=== PATIENT | female | born 1990 | race Caucasian/White ===

== ENCOUNTER 2020-04-20 00:48 | Observation (INO) | payer BC, OTHER, MEDICAID, SELFPAY ==
[2020-04-20] VITALS (27 sets, daily range): BP systolic 101–143; BP diastolic 53–83; PULSE 80–103; RESP 14–31; TEMP 36.8–37.1; O2SAT 93–100; BMI 25.7
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
[2020-04-20] MEDS: SODIUM CHLORIDE 0.9% 1,000 ML 1000 ML IV ×2 (01:05→02:33)
[2020-04-20] MEDS: ONDANSETRON 4 MG/2 ML INJ IV (01:20)
[2020-04-20 01:21] LABS: Add Manual Diff / Slide Review YES; Hematocrit 42.5 % (36-46); Hemoglobin 14.3 g/dL (12.0-16.0); Mean Corpuscular HGB Conc 33.7 % (30-36); Mean Corpuscular Hemoglobin 30.1 PG (26-34); Mean Corpuscular Volume 89.4 fL (80-100); Platelet Count 369 X10^3/uL (150-400); Red Blood Cell Count 4.76 X10^6/uL (4.0-5.2); Red Cell Distribution Width 12.5 % (11.6-14.8); White Blood Cell Count 26.6 X10^3/uL (4.5-11.0)
[2020-04-20 01:23] LABS: Prothrombin Time 11.7 SECONDS (10.1-12.7)
[2020-04-20 01:26] LABS: PTT Partial Thromboplastin Tim 32 SECONDS (26.4-36.2)
[2020-04-20 01:27] LABS: Alanine Aminotransferase 18 IU/L (<35); Albumin 4.3 g/dL (3.5-5.0); Albumin Globulin Ratio 1.3 (1.0-2.8); Alkaline Phosphatase 70 U/L (38-126); Aspartate Aminotransferase 37 IU/L (14-36); BUN Creatinine Ratio 15.2 (6-22); Bilirubin Total 0.3 mg/dL (0.2-1.3); Blood Urea Nitrogen 17 mg/dL (7-17); Calcium 9.1 mg/dL (8.4-10.2); Carbon Dioxide 21 mmol/L (22-32); Chloride 106 mmol/L (98-107); Estimated Glomerular Filt Rate 57.9 mL/min (>60); Globulin 3.2 g/dL (1.7-4.1); Glucose 94 mg/dL (70-100); HEMOLYSIS 15 (0-50); Potassium 4.6 mmol/L (3.4-5.1); Sodium 136 mmol/L (137-145); Total Protein 7.5 g/dL (6.3-8.2)
[2020-04-20 01:35] LABS: Creatine Kinase 831 U/L (30-135)
[2020-04-20 01:47] LABS: Troponin I 0.117 ng/mL (0.01-0.034)
[2020-04-20 01:50] LABS: CKMB % Relative Index 0.5 % (1.5-5.0)
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
[2020-04-20 02:56] LABS: Total Cells Counted 100
[2020-04-20 02:57] LABS: Neutrophils Absolute Manual 25270 /uL (3000-5900); RBC Morphology Normal Morphology
[2020-04-20 03:33] LABS: BUN Creatinine Ratio 15.4 (6-22); Blood Urea Nitrogen 16 mg/dL (7-17); Calcium 8.6 mg/dL (8.4-10.2); Carbon Dioxide 18 mmol/L (22-32); Chloride 110 mmol/L (98-107); Estimated Glomerular Filt Rate > 60.0 mL/min (>60); Glucose 94 mg/dL (70-100); HEMOLYSIS < 15 (0-50); Potassium 4.4 mmol/L (3.4-5.1); Sodium 137 mmol/L (137-145)
[2020-04-20 03:48] LABS: Troponin I 0.179 ng/mL (0.01-0.034)
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
[2020-04-20 05:56] LABS: COVID19 -Nasal RAPID Negative (Negative)
[2020-04-20] MEDS: SODIUM CHLORIDE 0.45% 1,000 ML 75 ML IV (05:56)
[2020-04-20] MEDS: ESCITALOPRAM 10 MG TABLET 20 MG PO (06:31)
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
[2020-04-20] MEDS: lamoTRIgine 100 MG TABLET 200 MG PO (08:44)
[2020-04-20] MEDS: NICOTINE 14 PATCH 14 MG TOP (08:45)
--- NOTE | 2020-04-20 11:05 | DI.ECHO.S_ITS ---
Echocardiogram Report + + :Name: RENETTA KAUR Study Date: 04/20/2020 Height: 63 in : :[facility] Weight: 145 lb : : Gender: Female BSA: 1.7 m2 : :: 1990 Age: 30 yrs BP: 123/81 mmHg: :Reason For Study: Elevated Troponin : :Ordering Physician: [place] : :Hospitalist Performed By: Elke Hayes : :Referring: YAIMA HART : + + Interpretation Summary The left ventricle is normal in size, wall thickness, and systolic function without any focal wall motion abnormalities. Diastolic parameters suggest probable normal left ventricular diastolic function and normal filling pressures. The right ventricle is normal in size and function. No evidence of pulmonary hypertension. None 100 significant valvular abnormalities. -No structural abnormalities by echocardiogram. Procedure: A two-dimensional transthoracic echocardiogram with color flow and Doppler was performed. The study quality was technically adequate. There is no prior echocardiogram noted for this patient. The patient was in normal sinus rhythm during the exam. Left Ventricle: The left ventricle is normal in size, wall thickness, and systolic function without any focal wall motion abnormalities. There is no ventricular septal defect visualized. The ejection fraction is estimated to be 55-60%. Diastolic parameters suggest probable normal left ventricular diastolic function and normal filling pressures. Right Ventricle: The right ventricle is normal in size and function. Atria: Both atria are normal in size. There is no Doppler evidence for an interatrial shunt. Mitral Valve: There is a flat closure plane of the the mitral valve leaflets. There is trace mitral regurgitation. Aortic Valve: The aortic valve is normal in structure and function. No aortic regurgitation is present. Tricuspid Valve: The tricuspid valve is normal in structure and function. There is a trace or physiologic amount of tricuspid regurgitation. Pulmonary artery pressures cannot be estimated because of the lack of a measurable TR jet velocity but the IVC suggests a CVP of around 3 mmHg. Pulmonic Valve: The pulmonic valve is not well visualized. Great Vessels: The aortic root is normal size. The ascending aorta could not be visualized. The IVC is of normal diameter and collapses greater than 50% with a sniff. This suggests a low right atrial pressure of 3 mm Hg. Pericardium/ Pleura There is no pericardial effusion. MMode/2D Measurements & Calculations LVIDd: 4.9 cm LVOT diam: 2.0 cm LVIDs: 3.2 cm Ao root diam: 2.9 cm FS: 34.1 % EPSS: 0.40 cm IVSd: 0.79 cm LVPWd: 0.76 cm LV rich. diameter/BSA (cm/m^2): 2.9 LV sys. diameter/BSA (cm/m^2): 1.9 LA A2 area: 17.4 cm2 RA long axis: 4.2 cm LA A4 area: 17.3 cm2 RA area: 12.4 cm2 LA length (vol): 4.8 cm RA vol: 30.9 ml LA vol: 53.4 ml RA : 18.3 ml/m2 LA vol index: 31.7 ml/m2 IVC diam: 2.2 cm RVD1 (basal): 3.0 cm RVD2 (mid): 2.5 cm TAPSE: 2.6 cm Doppler Measurements & Calculations Ao V2 max: 127.5 cm/sec LVOT Max Gurwinder: 100.9 cm/sec Ao V2 mean: 87.5 cm/sec LV V1 max P.1 mmHg Ao max P.5 mmHg LV V1 VTI: 20.6 cm Ao mean P.4 mmHg ALEJANDRO(I,D): 2.5 cm2 Ao V2 VTI: 24.6 cm ALEJANDRO(V,D): 2.4 cm2 sev ratio: 0.84 ALEJANDRO indexed to BSA (cm^2/m^2): 1.5 MV E max gurwinder: 99.5 cm/sec TR max gurwinder: 200.5 cm/sec MV A max gurwinder: 68.1 cm/sec TR max P.1 mmHg MV E/A: 1.5 PA V2 max: 104.9 cm/sec Med Peak E' Gurwinder: 14.2 cm/sec PA V2 mean: 74.8 cm/sec E/E' med: 7.0 PA mean P.5 mmHg Lat Peak E' Gurwinder: 14.1 cm/sec PA Accel Time: 0.15 sec E/E' lat: 7.1 E/e' average: 7.0 MV dec time: 0.15 sec MV P1/2t: 44.1 msec MV P1/2t max gurwinder: 100.2 cm/sec SV(LVOT): 62.4 ml MVA(P1/2t): 5.0 cm2 Electronically signed by: Luis Myrick M.D. on Reading Physician:04/20/2020 01:06 PM
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
[2020-04-20 12:56] LABS: Creatine Kinase 1369 U/L (30-135)
[2020-04-20 13:09] LABS: Troponin I 0.094 ng/mL (0.01-0.034)
[2020-04-20 13:11] LABS: CKMB % Relative Index 0.5 % (1.5-5.0); Creatine Kinase MB 6.28 ng/mL (<2.37)
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
== END 2020-04-20 14:15 | disposition home or self-care (01) ==
LOC: ED 04:35 → AC 04:39
PROVIDERS: Admitting Provider Nurse Practitioner Family; Emergency Provider Emergency Medicine; Referring Provider Emergency Medicine; Visit Provider Nurse Practitioner Family
DX: T68.XXXA Hypothermia, initial encounter (principal); V90.02XA Drowning and submersion due to fishing boat overturning, initial encounter; X31.XXXA Exposure to excessive natural cold, initial encounter; V94.89XA Other water transport accident, initial encounter; Y93.89 Activity, other specified; Y92.89 Other specified places as the place of occurrence of the external cause; R79.89 Other specified abnormal findings of blood chemistry; F17.210 Nicotine dependence, cigarettes, uncomplicated; F32.9 Major depressive disorder, single episode, unspecified; Z11.59 Encounter for screening for other viral diseases
CPT/HCPCS: 36415; 71045; 80048; 80053; 82550; 82553; 84484; 85025; 85610; 85730; 87635; 93005; 93010; 93306; 96361; 96374; 99285; G0378; J2405; J7050